=== PATIENT | male | born 2005 | race Caucasian/White ===

== ENCOUNTER 2025-04-16 14:37 | Emergency (ER) | payer BC, SELFPAY ==
--- OUTSIDE RECORDS SUMMARY | 2025-04-16 14:42 | XMS_ITS | Clinical Summary ---
Author Organization [address] lto Address [address] [place] [address] Care Team Providers Care Acid Maker Name Role Phone Caden Lara MD Primary Care Provider [phone] Allergies Active Allergy Reactions Criticality Noted Date Comments Amoxicillin Rash Medium 10/06/2019 Medications No known medications Active Problems No known active problems Immunizations Immunization Administration Dates Next Due DTaP 12/10/2006,2005 DTaP, Unspecified 07/21/2009,2005,10/09/20 05 Hep A, Ped Unspecified 12/10/2006 Hep A, Pediatric 06/10/2007 Hep B, Adolescent or Pediatric 6,2005,2005,06/06 HiB 12/10/2006, 6,2005,08/17 IPV 07/21/2009, 6,2005,08/17 Influenza, Unspecified 07/06/2023(Deferr ed: Patient Refused),07/20/2022(Deferred: Patient Refused),12/29/2020(Deferred: Patient Refused),11/19/2019(Deferred: Patient Refused) MMR 07/21/2009,07/11/2006 Meningococcal A,C,W,Y-TT (Ak a Menquadfi) 02/13/2022 Meningococcal MCV4P (Menactra) 07/04/2016 Pneumococcal Conjugate 7-Valent 12/10/19 07,2005,2005,08/17 Tdap 07/04/2016 Varicella 07/21/2009,07/11/2006 Medical History Medical History Date Comments Lump in throat 04/2020 right side, had us and ct scan, non cancerous Family History Medical History Relation Name Comments Hit and run Father Relation Name Status Comments Father (Age 22) Mother Alive Social History Tobacco Use Types Packs/Day Years Used Date Smoking Tobacco: Former Cigarettes Q uit: 12/29/2019 Smokeless Tobacco: Never Tobacco Cessation:Counseling Given: Not Answered Comments:2 per day Alcohol Use Standard Drinks/Week Comments Never 0 (1 standard drink = 0.6 oz pur e alcohol) [facility] Utilities Answer Date Recorded In the past 12 months has e [employer], gas, oil, or water [employer] threatened to shut off services in your home? No 03/11/2024 Humiliation, Afraid, Rape, and Kick questionnair e Answer Date Recorded Within the last year, have y ou been afraid of your partner or ex-partner? No 03/11/2024 Within the last year, have y ou been humiliated or emotionally abused in other ways by your partner or ex-partner? No Within the last year, have y ou been kicked, hit, slapped, or otherwise physically hurt by your partner or ex-partner? No 03/11/2024 Within the last year, have y ou been raped or forced to have any kind of sexual activity by your partner or ex-partner? No 03/11/2024 Social Connection and Isolat ion Panel [NHANES] Answer Date Recorded In a typical week, how many times do you talk on the phone with family, friends, or neighbors? More than three times a week 03/11/2024 How often do you get togethe r with friends or relatives? Twice a week 03/11/2024 How often do you attend chur ch or mosque services? Never 03/11/2024 Do you belong to any clubs o r organizations such as jehovah's witness groups, unions, fraternal or athletic groups, or school groups? No 03/11/2024 How often do you attend meet ings of the clubs or organizations you belong to? Never 03/11/2024 Are you , , di vorced, , never , or living with a partner? Never 03/11/2024 AUDIT-C Answer Date Recorded Q1: How often do you have a drink containing alcohol? 4 or more times a week 03/11/2024 Q2: How many drinks containi ng alcohol do you have on a typical day when you are drinking? 3 or 4 Q3: How often do you have si x or more drinks on one occasion? Monthly 03/11/2024 Overall Financial Resource Strain (CARDIA) Answe r Date Recorded How hard is it for you to pa y for the very basics like food, housing, medical care, and heating? Not hard at all 03/11/2024 PHQ-2 Answer Date Recorded PHQ-2 Total Score (If total score is 3 or more points, staff should administer the PHQ-9) 3 03/11/2024 [facility] - Occupational Stress Questionnaire Answer Date Recorded Do you feel stress - tense, restless, nervous, or anxious, or unable to sleep at night because your mind is troubled all the time - these days? Rather much 03/11/2024 Exercise Vital Sign Answer Date Recorde d On average, how many days pe r week do you engage in moderate to strenuous exercise (like a brisk walk)? 7 days 03/11/2024 On average, how many minutes do you engage in exercise at this level? 10 min 03/11/2024 PRAPARE - Transportation Answer Date Re corded In the past 12 months, has l ack of transportation kept you from medical appointments or from getting medications? No 02/18 In the past 12 months, has l ack of transportation kept you from meetings, work, or from getting things needed for daily living? No 03/11/2024 Housing Stability Vital Sign Answer Benji e Recorded In the last 12 months, was t here a time when you were not able to pay the mortgage or rent on time? No 03/11/2024 In the last 12 months, how many places have you lived? 1 03/11/2024 In the last 12 months, was t here a time when you did not have a steady place to sleep or slept in a senior care (including now)? 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 Gender Identity Not on file Sexual Orientation Not on file Obstetrics History Growth Chart Information Age Height Weight Goidpb-pvy-vlnl th Percentile BMI Percentile Head Circum Head Circum Percentile Date 18 years 167.6 cm (5' 5.98) 52.1 kg (114 lb 12.8 oz) 6.85%* 2022 17 years 167.6 cm (5' 5.98) 48.8 kg (107 lb 9.6 oz) 1.54%* 2022 17 years 167.6 cm (5' 6) 48.5 kg (107 lb) 1.42%* 2022 16 years 167.6 cm (5' 6) 48.9 kg (107 lb 12.8 oz) 4.37%* 2021 15 years 163.8 cm (5' 4.5) 46.1 kg (101 lb 9.6 oz) 7.37%* 2020 * [facility] (Boys, 2-20 Years) Last Filed Vital Signs Vital Sign Reading Time Taken Comments Blood Pressure 96/62 07/06/2023 4:03 PM CDT Pulse 75 07/06/2023 4:03 PM CDT Temperature 36.5 C (97.7 F) 07/06/2023 4:03 PM CDT Respiratory Rate 18 07/06/2023 4:03 PM CDT Oxygen Saturation 99% 07/06/2023 4:03 PM CDT Inhaled Oxygen Concentration - - Weight 52.1 kg (114 lb 12.8 oz) 07/06/2023 4:03 PM CDT Height 167.6 cm (5' 5.98) 07/06/2023 4:03 PM CD T Body Mass Index 18.54 07/06/2023 4:03 PM CDT Body Mass Index Percentile 6.85% 07/06/2023 4:0 3 PM CDT Growth Chart: CDC (Boys, 2-2 0 Years) Plan of Treatment Health Maintenance Due Date Last Done Comments Hepatitis C Screening 2005 HPV Vaccines (1 - Male 3-dos e series) 2020 Meningococcal B Vaccine (1 o f 2 - Standard) 2021 Regular Well Visit/Exam 18-64 07/06/2024 07/06/2023 Covid-19 Vaccine (3 - 2023-2 5 season) 2024 06/30/2021, 06/07/2021 Depression Screening 03/11/2025 03/11/2024, 03/11/2024, 07/06/2023, Additional history exists Influenza Vaccine (Season Ended) 2025 DTaP/Tdap/Td Vaccine (7 - Td or Tdap) 07/04/2026 07/04/2016, 07/21/2009, 12/10/2006, Additional history exists Hepatitis B Screening Completed 2005 , 2005, 2005, Additional history exists Pneumococcal vaccine <65 Completed 007, 2005, 2005, Additional history exists Varicella Vaccines Completed 07/21/2009, 07/11/2006 Meningococcal Vaccine Completed 02/13/2022, 016 Insurance [employer] OOS Member Subscriber Plan / Payer (Ef fective 2022-Present) Name:Nnamdi Munoz Relation to Subscriber:Child Name:MELISA KAY Date of :1983 (Home) Address: [address] [place] [id number] Payer ID:[id number] ([facility]) Type: NASH Address: [facility] [id number] [id number] BLUE ACCESS OOS BLUE ACCESS OOS BLUE ACCESS OOS Care Teams Acid Maker Relationship Specialty Start Date End Date Caden Lara MD [address] [place] [address] PCP - General Family Medicine 12/29/20
--- OUTSIDE RECORDS SUMMARY | 2025-04-16 14:42 | XMS_ITS | Clinical Summary ---
Author Organization [facility] Address [address] [place] [address] Care Team Providers Care Reconciler Name Role Phone Unavailable Primary Care Provider Unavailabl e Source Comments [facility],non-owned Affiliates and Associated Physician Practices is amultiple site organization consisting of ambulatory clinics and hospital sitesin [place], [place], [place] and [place]. This disclosure is being madepursuant to the Care Everywhere program and may not contain all information available regarding this patient. Last updated 18.[facility] Allergies Active Allergy Reactions Criticality Noted Date Comments Amoxicillin Rash Medium 10/06/2019 Medications * Be aware that medications may not be up to date on this document. Alwaysverify current medications with the patient. No known medications Social History Tobacco Use Types Packs/Day Years Used Date Smoking Tobacco: Passive Smo ke Exposure - Never Smoker Smokeless Tobacco: Never Sex and Gender Information Value Date Recorded Sex Assigned at Not on file Legal Sex Male 4:26 PM CDT Gender Identity Not on file Sexual Orientation Not on file Last Filed Vital Signs Vital Sign Reading Time Taken Comments Blood Pressure 108/62 10/06/2019 3:36 PM INFECTION CONTROL SPECIALIST Pulse 78 10/06/2019 3:36 PM INFECTION CONTROL SPECIALIST Temperature 36.3 C (97.4 F) 10/06/2019 3:36 PM INFECTION CONTROL SPECIALIST Respiratory Rate 16 10/06/2019 3:36 PM INFECTION CONTROL SPECIALIST Oxygen Saturation 98% 10/06/2019 3:36 PM INFECTION CONTROL SPECIALIST Inhaled Oxygen Concentration - - Weight 46.7 kg (103 lb) 10/06/2019 3:36 PM INFECTION CONTROL SPECIALIST Height 161.3 cm (5' 3.5) 10/06/2019 3:36 PM INFECTION CONTROL SPECIALIST Body Mass Index 17.96 10/06/2019 3:36 PM INFECTION CONTROL SPECIALIST Body Mass Index Percentile 27.32% 10/06/2019 3:3 6 PM INFECTION CONTROL SPECIALIST Growth Chart: CDC (Boys, 2-2 0 Years) Plan of Treatment Health Maintenance Due Date Last Done Comments HIV SCREENING 2020 HPV VACCINE (1 - Male 3-dose series) 2020 MENINGOCOCCAL (Group B) VACC INE SHARED DECISION-MAKING (1 of 2 - Standard) 2021 HEPATITIS C SCREENING 06/02/2023 DTAP/TDAP/TD VACCINES (1 - Tdap) 2024 HEPATITIS B VACCINE (1 of 3 - 19+ 3-dose series) 2024 COVID-19 VACCINE (1 - 2023-2 5 season) 2024 DEPRESSION SCREENING 11/19/2024 INFLUENZA VACCINE (Season Ended) 2025 ZOSTER VACCINE (1 of 2) 2055 HIB VACCINE Aged Out No longer eligi ble based on patient's age to complete this topic MENINGOCOCCAL GROUPS A/C/Y/W VACCINE Aged Out No longer eligible b ased on patient's age to complete this topic PNEUMOCOCCAL VACCINE Aged Out No long er eligible based on patient's age to complete this topic Insurance ANTH
--- OUTSIDE RECORDS SUMMARY | 2025-04-16 14:42 | XMS_ITS | Referral Summary ---
Author Organization [address] lto Address [address] [place] [address] Care Team Providers Care Vending Mechanic Name Role Phone Caden Lara MD Primary Care Provider [phone] Allergies Active Allergy Reactions Criticality Noted Date [...] 7-Valent 12/10/19 07,2005,2005,08/17 Tdap 07/04/2016 Varicella 07/21/2009,07/11/2006 Social History Tobacco Use Types Packs/Day Years Used Date Smoking Tobacco: Former Cigarettes Q uit: 12/29/2019 Smokeless Tobacco: Never Tobacco Cessation:Counseling Given: Not Answered Comments:2 per day Alcohol Use Standard Drinks/Week Comments Never 0 (1 standard drink = 0.6 oz pur e alcohol) [facility] Utilities Answer Date Recorded In the past 12 months has e [employer], gas, oil, or water [employer] threatened to shut off services in your [...] often do you attend chur ch or yarsani services? Never 03/11/2024 Do you belong to any clubs o r organizations such as denominational groups, unions, fraternal or athletic groups, or [...] staff should administer the PHQ-9) 3 03/11/2024 [facility] - [...] place to sleep or slept in a fci (including now)? 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 Gender Identity Not on file Sexual Orientation [...] 07/06/2023 4:0 3 PM CDT Growth Chart: [facility] (Boys, 2-2 0 Years) Plan of Treatment Not on file Insurance [employer] O[employer] ACCESS OOS [employer] OOS Member Subscriber Plan / Payer ( fective 2022-) Name:Nnamdi Munoz Relation to Subscriber:Child Name:Favian Kayhanie Bryan Date of :1983 Address: [address] [place] [id number] Payer ID:[id number] ([employer]) Type:Getting-in Address: [facility] [address] [id number] Care Teams Vending Mechanic Relationship Specialty Start Date End [place] [address] PCP - General Family Medicine 12/29/20
[2025-04-16 14:49] VITALS: BP 150/87; PULSE 98; RESP 16; TEMP 36.9; O2SAT 100
--- NOTE | 2025-04-16 15:00 | ED_ITS ---
HPI - General Adult General Chief complaint: Unspecified Stated complaint: alcohol withdrawl Time Seen by Provider: 04/16/25 15:19 Source: patient Mode of arrival: ambulatory Limitations: no limitations History of Present Illness HPI narrative: 19-year-old male presented for concern of alcohol withdrawal. Endorses drinking 8 or 9 beers per day for about 2 years. States his last beer was 2 days ago at 3:00 a.m.. He is requesting information on signs and symptoms of alcohol withdrawal. He states he quit drinking alcohol on his own and plans to attend alcoholics anonymous meetings. Endorses hand tremors and brief intermittent headaches. Denies drug use. Denies SI/HI. Reports he is safe at home. Related Data Home Medications ?Medication ?Instructions ?Recorded ?Confirmed ?Last Taken ?Type No Home Medications 04/16/25 04/16/25 Unknown History Allergies Allergy/AdvReac Type Severity Reaction Status Date / Time amoxicillin Allergy Mild Rash Verified 04/16/25 14:54 Review of Systems Review of Systems: CONSTITUTIONAL: Denies body aches, fever, chills, or sweats. EYES: Denies visual changes, photophobia ENT: Denies rhinorrhea, congestion, sore throat, or otalgia. CARDIOVASCULAR: Denies chest pain, palpitations, or edema. RESPIRATORY: Denies cough or dyspnea. GASTROINTESTINAL: Denies abdominal pain, nausea, vomiting, or diarrhea. MUSCULOSKELETAL: Denies myalgia. NEUROLOGIC: reports headache, Denies numbness, tingling, or weakness. PSYCH: Denies depression or anxiety. All systems reviewed & are unremarkable except as noted in HPI and below PMFSH Family History Family History Grandparent Hypertension Grandparent Hypertension Social History Social History Smoking status: Never smoker Alcohol intake: never Substance use: never Comments At time of signature, I have reviewed and agree with nursing past medical, surgical, social and family history unless otherwise noted. Please see nursing chart for further information. There is no relevant family history pertinent to the presenting complaint Exam Narrative: GENERAL: Well-appearing EYES: EOMI. PERRLA. Conjunctivae normal. ENT: Mucous membranes pink and moist. CHEST: No respiratory distress. Clear to auscultation. HEART: Regular rate and rhythm. No murmur appreciated. Normal peripheral pulses. ABDOMEN: Soft, nontender, nondistended, normal active bowel sounds. EXTREMITIES: Normal range of motion. No edema. SKIN: Warm, dry, Capillary refill normal. Normal skin turgor. NEURO: No focal deficits. Alert and oriented x3. Gait steady. PSYCH: Mild anxiety, Involuntary tremors. Course Course Emergency Course: Patient is aware of diagnosis, understands and agrees to treatment plan. Anticipatory guidance given. Patient agrees to follow-up as directed and is aware of reasons to seek care at the emergency department. Portions of this record may have been created with voice recognition software Level of Care: Express Care Visit Vital Signs Vital signs: Vital Signs Temperature 98.5 F 04/16/25 14:49 Pulse Rate 98 04/16/25 14:49 Respiratory Rate 16 04/16/25 14:49 Blood Pressure 150/87 H 04/16/25 14:49 Pulse Oximetry 100 04/16/25 14:49 Oxygen Delivery Room Air 04/16/25 14:49 Temperature 98.5 F 04/16/25 14:49 Pulse Rate 98 04/16/25 14:49 Respiratory Rate 16 04/16/25 14:49 Blood Pressure 150/87 H 04/16/25 14:49 Pulse Oximetry 100 04/16/25 14:49 Oxygen Delivery Room Air 04/16/25 14:49 Medical Decision Making MDM Narrative Medical decision making narrative: Pt presented with reports of alcohol withdrawal x2 days. Denies SI/HI. Offered ER transfer, declines at this time. CIWA <10, very mild. Provided with [facility] information, and several resources in the area. Discussed physical exam findings. Advised supportive measures and signs/symptoms to go to the ER. Pt is appropriate for outpt treatment and f/u. Differential Diagnosis Differential Diagnosis: alcohol withdrawal, delirium, electrolyte imbalance Vital Signs Vital Signs: Vital Signs Temperature 98.5 F 04/16/25 14:49 Pulse Rate 98 04/16/25 14:49 Respiratory Rate 16 04/16/25 14:49 Blood Pressure 150/87 H 04/16/25 14:49 Pulse Oximetry 100 04/16/25 14:49 Oxygen Delivery Room Air 04/16/25 14:49 Temperature 98.5 F 04/16/25 14:49 Pulse Rate 98 04/16/25 14:49 Respiratory Rate 16 04/16/25 14:49 Blood Pressure 150/87 H 04/16/25 14:49 Pulse Oximetry 100 04/16/25 14:49 Oxygen Delivery Room Air 04/16/25 14:49 reviewed Discharge Plan Discharge Clinical Impression: Alcohol withdrawal Patient Disposition: Home Condition: Stable Instructions: Antibiotic Form, Alcohol Withdrawal (ED), Alcohol Use Disorder (ED) Additional Instructions: Call or text 808 Suicide & Crisis Lifeline Other resources: * Alcoholics Anonymous --?www.aa.org * Al-Anon Family Groups/Al-Anon/Alateen --?al-anon.org * National Mumford on Alcohol Abuse and Alcoholism --?www.niaaa.nih.gov * SMART Recovery -?www.smartrecovery.org/ * Substance Abuse and Mental Health Services Administration --?www.university tuberculosis hospitala.gov/atod/alcohol Go to the emergency room or call 911 or the local emergency number if seizures, fever, severe confusion, hallucinations, or irregular heartbeats occur.If you go to the hospital for another reason, tell the providers if you've been drinking heavily so they can monitor you for symptoms of alcohol withdrawal. Follow up with your primary care provider as needed in 1 week Go to the ER for worsening symptoms or concerns Patient Language: Kuwaiti Prescriptions: No Action No Home Medications Follow-up/Referrals: Jane,MD Caden [Primary Care Provider] - Time of Disposition: 15:31
== END 2025-04-16 15:44 | disposition home or self-care (01) ==
PROVIDERS: Emergency Provider Nurse Practitioner Family; PCP Hospitalist
DX: F10.239 Alcohol dependence with withdrawal, unspecified (principal)
CPT/HCPCS: 99211; G0463